=== PATIENT | female | born 1985 | race Caucasian/White ===

== ENCOUNTER → 2017-01-04 | Outpatient (CLI) | payer OTHER ==
--- NOTE | 2017-01-04 21:16 | RADRPT ---
PROCEDURE: XR Left hip and pelvis. CLINICAL INDICATION: Left hip pain and pelvic pain. TECHNIQUE: 3 views. Frontal pelvis. Frontal and lateral left hip. COMPARISON: None. FINDINGS: There is no fracture or dislocation. The soft tissues are normal. The articular surfaces are intact. 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 There is no lytic or blastic lesion. There is no radiopaque foreign body. IMPRESSION: 1. 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 2. No acute abnormality. RPTAT: QQ .Jay Chatman MD, MD Date Time Electronically viewed and signed by .Jay Chatman MD, on 01/04/2017 21:16 .R/
--- NOTE | 2017-01-05 05:30 | HKNOTE ---
DATE OF SERVICE: 01/04/2017 CHIEF COMPLAINT: Left hip pain. HISTORY OF PRESENT ILLNESS: This is a 31-year-old female who has had chronic left hip pain. Accord ing to Ms. Willson, she has a feeling of instability of her hip. She denies any dislocations. She sta moose that her joints have always been "loose". She has a history of loose joints. She has a positiv e family history of loose joints. She denies any history of trauma. She denies any back pain. She denies any numbness, tingling or weakness. She does not use any assist devices. She has no other complaints. GAIT: Nonantalgic gait, reciprocal gait pattern. LEFT HIP EXAMINATION: 0 to 120 degrees of hip flexion, 70 degrees of external rotation, 30 degrees of internal rotation, 40 degrees of adduction. Negative Gasper's. Negative straight leg raise. MOTOR STRENGTH: 5/5 hamstrings, quadriceps, tibialis anterior, gastrocsoleus. X-RAYS LEFT HIP: Multiple views of the left hip taken in the office demonstrate bilateral congenita l hip dysplasia. There are no fractures, dislocations or degenerative changes seen. IMPRESSION: A 31-year-old female with bilateral congenital hip dysplasia. PLAN: I discussed the x-ray findings with Ms. Willson. She does not require any pain medications. Bailey gonzalez was instructed on strengthening and physical therapy. She will follow up as needed. Dictated By: MARY FARLEY/MARK Conf#: [id number] DID#: [id number]
== END | disposition home or self-care (01) ==
LOC: HKI 14:18
PROVIDERS: ATTEND Orthopaedic Surgery Adult Reconstructive Orthopaedic Surgery
DX: Q65.89 Other specified congenital deformities of hip (principal)
CPT/HCPCS: 73502; Z7500; G0463